=== PATIENT | female | born 1945 | race Caucasian/White ===

== ENCOUNTER 2021-02-14 14:00 | Outpatient (CLI) | payer MEDICARE ==
[2015-11-02 07:54] VITALS: BMI 34.6
[~2021-02-14 14:00] MED LIST: CALCIUM/MG/ZINC PO; HYDROCHLOROTHIA25 MG PO; NAPROSYN500 MG PO; PROTONIX20 MG PO; TRAZODONE HCL50 MG PO; VENTOLIN HFA18 GM INH; ZYRTEC10 MG PO
== END 2021-02-14 23:59 | disposition home or self-care (01) ==
LOC: D.MAMMO 14:00
PROVIDERS: ATTEND Nurse Practitioner Family
DX: Z12.31 Encounter for screening mammogram for malignant neoplasm of breast (principal)